=== PATIENT | male | born 1980 ===

== ENCOUNTER 2019-08-24 10:16 | Outpatient (CLI) | payer OTHER ==
--- NOTE | 2019-08-24 12:11 | MRI Report ---
Reason: PAIN IN LT KNEE Procedure Date: 08/24/2019 Accession Number: [id number] / [id number] Procedure: MRI - Knee LT W/O CPT Code: Final Report FULL RESULT: EXAM: LEFT KNEE MRI WITHOUT CONTRAST EXAM DATE: 08/24/2019 11:15 AM. CLINICAL HISTORY: Medial left knee pain after twisting injury. COMPARISON: None. TECHNIQUE: Multiplanar, multisequence T1-weighted and fluid-sensitive sequences of the knee without contrast. Other: None. FINDINGS: Bones and articular cartilage: Bone contusion at the anterolateral aspect of the lateral femoral condyle. Small mildly depressed fracture at the posterior margin of the lateral tibial plateau. Bone contusion at the posterior aspect of the lateral tibial plateau and posterior aspect of the medial tibial plateau. Articular cartilages within normal limits. Medial Meniscus: Small oblique tear extending through the inferior surface at the inner third of the posterior horn-body junction (coronal images 15 and 16 and sagittal images 23 and 24). Lateral Meniscus: Radial tear and free edge fraying at the inner third of the posterior horn. Cruciate Ligaments: Full-thickness/compete tear at the proximal to mid aspects of the anterior cruciate ligament. The tear may be chronic. The posterior cruciate ligament is intact. Collateral Ligaments: The medial collateral and lateral collateral ligamentous structures are intact. Tendons: The quadriceps, patellar, semimembranosus, and popliteus tendons are unremarkable. Musculature: No edema or fatty atrophy. Other: Small to moderate sized joint effusion. No popliteal cyst. No loose bodies. The medial and lateral retinacula are intact. The subcutaneous tissues and fat pads are unremarkable. IMPRESSION: 1. Bone contusions at the lateral femoral condyle and posterior aspects of the medial and lateral tibial plateaus. There is a small, mildly depressed fracture at the posterior margin of the lateral tibial plateau. 2. Full-thickness/complete tear at the proximal to mid aspects of the anterior cruciate ligament. The tear may be chronic. 3. Small oblique tear at the posterior horn-body junction of the medial meniscus. 4. Radial tear and free edge fraying at the inner third of the posterior horn lateral meniscus. 5. Small to moderate sized joint effusion. RADIA
== END 2019-08-24 10:17 | disposition home or self-care (01) ==
LOC: DI 10:16
DX: S82.142A Displaced bicondylar fracture of left tibia, initial encounter for closed fracture (principal); S83.512A Sprain of anterior cruciate ligament of left knee, initial encounter; S70.12XA Contusion of left thigh, initial encounter; S83.242A Other tear of medial meniscus, current injury, left knee, initial encounter; S83.282A Other tear of lateral meniscus, current injury, left knee, initial encounter; M25.462 Effusion, left knee

== ENCOUNTER 2019-09-03 06:17 | Day surgery (SDC) | payer OTHER ==
[2019-09-03] MEDS ORDERED: KETOROLAC 30 MG/ML VIAL IVP ONE (06:18)
[2019-09-03] MEDS ORDERED: MIDAZOLAM 2 MG/2 ML VIAL IVP ONE (06:18)
[2019-09-03] MEDS ORDERED: LIDOCAINE-MPF 2% 5 ML VIAL IM ONE (06:18)
[2019-09-03] MEDS ORDERED: DEXAMETHASONE 4 MG/ML VIAL IVP ONE (06:18)
[2019-09-03] MEDS ORDERED: fentaNYL 100 MCG/2 ML VIAL IVP ONE (06:18)
[2019-09-03] MEDS ORDERED: PROPOFOL 200 MG/20 ML VIAL IVP ONE (06:18)
[2019-09-03] MEDS ORDERED: HYDROmorphone 0.5 MG/0.5 ML SYRINGE IVP ONE (06:18)
[2019-09-03] MEDS ORDERED: GLYCOPYRROLATE 1 MG/5 ML VIAL IVP ONE (06:18)
[2019-09-03] MEDS ORDERED: ACETAMINOPHEN 1,000 MG/100 ML 100 ML IV ONE (06:18)
[2019-09-03] MEDS ORDERED: LACTATED RINGERS 1,000 ML IV ONE ×2 (06:26→10:25)
[2019-09-03] MEDS ORDERED: CEFAZOLIN SODIUM IN 0.9 % NACL 2 GM/100 ML BAG IV ONE (06:26)
--- NOTE | 2019-09-03 07:14 | ANESTHESIA ---
Pre-Anesthesia VS, & Labs - Diagnosis ACL/meniscus tear - Procedure Left knee ACL repair/Meniscus repair Vital Signs: Temp Pulse Resp BP Pulse Ox 36.6 C 72 16 126/80 100 09/03/19 06:38 09/03/19 06:38 09/03/19 06:38 09/03/19 06:38 09/03/19 06:38 Height 5 ft 7 in Weight (kg) 93.44 kg - NPO >8 hours Home Medications and Allergies Home Medications: Ambulatory Orders No Known Home Medications 09/01/19 No Known Home Medications 09/01/19 Allergies/Adverse Reactions: Allergies Allergy/AdvReac Type Severity Reaction Status Date / Time No Known Drug Allergies Allergy Verified 09/03/19 06:46 Anes History & Medical History - Anesthetic History Anesthesia Complications: reports: No previous complications, Other-see comment (no previous anesthetic history. no family history of anesthetic related complications of) Family history of Anesthesia Complications: Denies Family history of Malignant Hyperthermia: Denies - Medical History Cardiovascular: reports: None Pulmonary: reports: None Gastrointestinal: reports: GERD Urinary: reports: None Neuro: reports: None Musculoskeletal: reports: None, Other Endocrine/Autoimmune: reports: None Blood Disorders: reports: None Skin: reports: None Smoking Status: Never smoker Psychosocial: reports: No issues indicated Exam General: Alert, Oriented x3, Cooperative, No acute distress Dental: WNL Mouth Openin Fingerbreadth Neck Mobility: Normal Mallampati classification: II Thyromental Distance: 4-6 cm Respiratory: Lungs clear, Normal breath sounds, No respiratory distress, No accessory muscle use Cardiovascular: Regular rate, Normal S1, Normal S2, No murmurs Abdomen: Normal bowel sounds, Soft, No tenderness, No hepatospenomegaly, No masses Extremities: No clubbing, No cyanosis, No edema, Normal pulses, No tenderness/swelling Neurological: Normal gait, Normal speech, Strength at 5/5 X4 ext, Normal tone, Sensation intact, Cranial nerves 3-12 NL, Reflexes 2+ Mental/Cognitive Status: Alert/Oriented X3, Normal for patient Cognitive Status: Within normal limits Plan Anesthesia Type: General Regional Block: Per Surgeon's request for Post Op pain control Consent for Procedure(s) Verified and Reviewed: Yes Code Status: Attempt Resuscitation ASA classification: 1-Healthy patient Is this case an emergency?: No
[2019-09-03] MEDS ORDERED: BUPIVACAINE 0.25% PF 30 ML VIAL SUBQ ONE ×2 (07:30)
[2019-09-03] MEDS ORDERED: EPINEPHrine 1 MG/ML AMP IR ONE (07:30)
[2019-09-03] MEDS ORDERED: oxyCODONE 5 MG TABLET PO PRN (10:12)
[2019-09-03] MEDS ORDERED: ONDANSETRON 4 MG/2 ML VIAL IVP PRN (10:12)
--- NOTE | 2019-09-03 10:19 | OPERATIVE REPORT ---
Operative Report - Other Other Information/Narrative: Date of Surgery: 03 September 2019 Pre-Op Diagnosis: Left ACL tear, left lateral meniscus tear Procedure: Arthroscopic assisted left ACL reconstruction with hamstring autograft. Left lateral meniscus debridement. Postop Diagnosis: Same Primary Surgeon: Cipriano Wellington Secondary Surgeon: None Complications: None Tourniquet Time: 119 minutes EBL: 25 cc Implants: Arthrex Tightrope. Arthrex 9 mm Graftbolt Graft & Tunnel Size: 8 mm Postoperative Protocol: Routine. Indication For Surgery: 38-year-old male with an ACL tear 8 years ago and a meniscus tear. He has had recurrent pivoting and functional instability and desires to return to cutting activities. The risks, benefits, and alternatives were discussed. Risks include pain, bleeding, infection, damage to nearby structures and cartilage, lack of symptom relief, need for further surgery, DVT, PE, stroke, and . Written consent was obtained. Examination Under Anesthesia: ROM equal to the contralateral side. Stable dial at 30 & 90 degrees. Stable to varus and valgus stressing at 0 & 30 degrees. 2b Radha. Abnormal Pivot shift. No mechanical sensation Diagnostic Arthroscopy: No loose bodies. Synovium injected. Patella cartilage normal. Trochlear cartilage linear fissure in the center but no unstable sections. Medial femoral condyle cartilage normal. Medial tibial plateau cartilage normal. Medial meniscus normal. ACL was ruptured completely. PCL was intact. Lateral femoral condyle cartilage normal. Lateral tibial plateau cartilage grade 1-2 changes. Lateral meniscus complex horizontal and parrot- beak tear of the posterior horn at and near the root. Unstable portions were excised back to a stable base. Procedure in Detail: The patient was met in the pre-operative hold area on the day of the procedure. The operative extremity was signed and questions were answered. The patient was brought to the operating room and a general anesthetic was administered. Supine position was used and bony prominences were padded. An examination under anesthesia was performed. Standard prepping and draping was performed. A time out confirmed patient identification, laterality, procedure, allergies, antibiotics, and images. An Esmarch was used to exsanguinate the limb and the tourniquet was elevated to 250 mmHg. Hamstring Graft Yolo: A 4 cm incision was made over the insertion of the pes anserine. Hemostasis was obtained with electrocautery. Dissection was brought down to the sartorial fascia and this was cleared off with a sponge. A partial thickness incision was made in the sartorial fascia 5mm proximal to and in line with the gracilis tendon, taking care to not disrupt the superficial medial collateral ligament. A full thickness longitudinal incision was made down to bone, releasing the pes anserine. I then identified the interval between the hamstring tendons and the medial collateral ligament. This interval was exploited and the hamstrings were viewed on the underside of the sartorial fascia. A right angle clamp was used to separate the gracilis tendon from the sartorial fascia and it was released sharply with a knife. I then whip stitched the tendon with 4 bites up and down. I then freed the tendon from all fascial attachments back to the hiatus. A closed tendon stripper was then used to harvest the gracilis tendon and it was brought to the back table. The procedure was repeated for the semitendinosis tendon. The graft was then prepped on the back table. A standard diagnostic arthroscopy of the knee was performed through anterolateral and anteromedial portal sites. The anteromedial portal was created under direct visualization after localizing with a spinal needle. The findings can be found above. I then proceeded to use a biter and a shaver to remove the unstable portions of the lateral meniscus. There was a horizontal tear at the root which the portions of the meniscus that attached to the tibia in which portions attached via meniscal femoral ligaments. I debrided a small amount from the superior and inferior leaflet. There is a parrot-beak tear of the posterior horn superior leaflet at the junction with the body and this was debrided back to a stable base. ACL Prep: I then used a sucker shaver and a radiofrequency ablation wand to release all residual ACL tissue off of the lateral wall. I debrided all excess tissue from the notch. I placed the camera into the anteromedial portal and ensured that I was cleared all the way to the back wall. I then brought the flip cutter aiming device through the lateral portal. I positioned into the central position of the [place] ACL footprint on the femur ensuring to leave a 2 mm back wall and stay off of the distal articular cartilage. Once satisfied with the position, the bullet was brought down to the skin and a eliceo was made. A 3 cm longitudinal skin incision was made and the IT band was split in line with its fibers. A sen rake was used to retract the IT band posterior and the bullet was brought down to the lateral femoral wall. An appropriately sized flip cutter was then drilled into the notch. It was then flipped and the lateral wall was scored confirming an appropriate position. The bullet was then malleted into place and a 25mm femoral tunnel was drilled. Bony debris was removed with a shaver. A fiberstick suture was brought into the joint, retrieved out the lateral portal, and clamped to itself. I then identified the ACL footprint on the tibia and set the tibial guide at 55. I aimed to have the guide pin come out 7 mm anterior to the PCL and in line with the posterior borders of the anterior horn of the lateral meniscus, on the lateral border of the medial tibial spine. The guidewire was then brought into the joint. The knee was then straightened to confirm that it would not impinge on the notch. The guidewire was clamped with a Mary Lou. The skin was then protected and the tibial tunnel was drilled with the appropriate sized reamer. The fiberwire was then brought through the tibial tunnel. The graft was then loaded onto the tightrope and the graft was marked at 25mm. The graft was then passed and the button was brought out of the skin over the lateral femur. I then guided the button back down beneath the IT band and visualized it on the lateral femoral cortex. I then held tension on the graft and advanced it by pulling on the white tightrope sutures. The marking on the graft disappeared into the femoral tunnel and seated nicely. The knee was then cycled 20 times with tension on the graft. I then placed a large bump under the distal femur the pulled on all 4 limbs of the graft and placed a posterior drawer on to the proximal tibia. The guidewire was then placed into the tibia and the tunnel was dialated until a tight fit was seen. The graftbolt was then placed. I then brought the arthroscope back into the joint and probed the graft finding it to have excellent tension. Final images were taken. Excess graft was then cut and the wounds were irrigated copiously. I closed the sartorial fascia and IT band with 0 Vicryl, the subdermal tissues with 2 O Vicryl, and the skin with running Monocryl. Steri-Strips were applied and 20 cc of 0.5% Marcaine was placed under the incisions. The tourniquet was then dropped and a sterile dressing was placed. The ROM brace was placed and was locked out in full extension. He was awakened and transferred to the recovery room.
[2019-09-03] MEDS ORDERED: PROMETHAZINE 25 MG/1 ML VIAL ONE (10:55)
[2019-09-03] MEDS ORDERED: EPINEPHrine 1 MG/ML AMP ONE (11:16)
[2019-09-03] MEDS ORDERED: BUPIVACAINE 0.25% PF 30 ML VIAL ONE (11:17)
[2019-09-03] MEDS ORDERED: HYDROmorphone 0.5 MG/0.5 ML SYRINGE ONE (11:51)
[2019-09-03] MEDS: oxyCODONE 5 MG TABLET ONE ×2 (12:23→12:48)
[2019-09-03] MEDS ORDERED: oxyCODONE 5 MG TABLET ONE (12:46)
[2019-09-03 13:22] VITALS: BP 110/54
== END 2019-09-03 06:18 | disposition home or self-care (01) ==
LOC: SDS 06:17
PROVIDERS: ATTEND Orthopaedic Surgery
DX: S83.512A Sprain of anterior cruciate ligament of left knee, initial encounter (principal); S83.272A Complex tear of lateral meniscus, current injury, left knee, initial encounter; M17.12 Unilateral primary osteoarthritis, left knee; M25.462 Effusion, left knee